=== PATIENT | male | born 1985 | race Caucasian/White ===

== ENCOUNTER 2020-10-11 13:43 | Emergency (ER) | payer BC, OTHER ==
[~2020-10-11] VITALS: Ht 180.3 cm; Wt 99.8 kg
[2020-10-11] MEDS ORDERED: ADVAIR 250-501 EACH INH (13:50)
[2020-10-11 17:57] VITALS: BP 120/82
== END 2020-10-11 18:02 | disposition still patient (30) ==
LOC: ER 13:43
DX: T18.128A Food in esophagus causing other injury, initial encounter (principal); J45.909 Unspecified asthma, uncomplicated; Z79.899 Other long term (current) drug therapy; X58.XXXA Exposure to other specified factors, initial encounter; Y93.89 Activity, other specified; Y92.89 Other specified places as the place of occurrence of the external cause; Y99.8 Other external cause status
CPT/HCPCS: 62110; 62900